=== PATIENT | female | born 1960 | race Two or more races ===

== ENCOUNTER → 2019-03-29 | Day surgery (SDC) | payer OTHER ==
[2019-03-26 17:27] VITALS: BMI 25.4
[~2019-03-29] MED LIST: BUPIVACAINE HCL/PF 0.5% (5MG/ML) 10 ML VIAL ONE; DEXAMETHASONE SOD PHOSPHATE 4 MG/1 ML VIAL ONE; KETOROLAC TROMETHAMINE 30 MG/1 ML VIAL ONE; LIDOCAINE HCL/PF 2% SDV 5ML VIAL ONE; MIDAZOLAM HCL 2 MG/2 ML SINGLE DOSE VIAL ONE; MORPHINE SULFATE 10 MG/1 ML *VIAL ONE; ONDANSETRON 4 MG/2 ML VIAL IVPUSH ONE; ONDANSETRON 4 MG/2 ML VIAL IVPUSH PRN; ONDANSETRON 4 MG/2 ML VIAL ONE; PROMETHAZINE HCL 25 MG/1 ML VIAL IVPUSH PRN; PROPOFOL 20 ML ONE; ceFAZolin SODIUM 1 GM VIAL ONE; oxyCODONE HCL 5 MG TABLET PO PRN
[2019-03-29 12:25] VITALS: TEMP 97.6
[2019-03-29 13:28] VITALS: BP 146/82; PULSE 85
--- NOTE | 2019-03-30 09:26 | OP ---
DATE OF OPERATION: 03/29/2019 PREOPERATIVE DIAGNOSIS: Torn medial meniscus to the left knee. 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 PROCEDURE PERFORMED: Drilling of osteochondritis dissecans lesion, extensive joint debridement, partial medial meniscectomy, shaving of patellar cartilage consistent with chondroplasty, synovectomy extensive. SURGEON: Itz Fernandez MD MECHANICAL ENGINEERING PROFESSOR: JAYCE Padgett ANESTHESIOLOGIST: Raymundo Chowdary MD ANESTHESIA: General anesthesia. THE PROCEDURE: Consisted of the patient being brought into the operating room and gently transferred from the stretcher to the OR table with all bony prominences well padded. The left leg was prepared and draped in sterile fashion. The patient was given intravenous antibiotics and copious irrigation throughout the procedure to minimize the risk for infection. A complete [id number] discussion was conducted with the patient, which was inclusive of, but not limited to, infection, bleeding, , paralysis, increased pain, and need for repeat surgery. The patient asked questions, understood the procedure, and desired to proceed with surgical treatment. Following sterile preparation and draping of the left leg, an appropriate time-out was conducted which was inclusive of, but not limited to, site of surgery, type of surgery, anesthesiologist, and surgeon. Following sterile preparation, draping, and time-out, the left leg was exsanguinated using an Esmarch bandage, and the tourniquet inflated to 325 mmHg. Suprapatellar and medial and lateral joint line portals were used to introduce the arthroscope and arthroscopic instruments. The knee was examined. There was noted to be inflamed synovial tissue in the suprapatellar pouch, and extensive synovectomy was performed. The medial gutter was noted to have hypertrophic synovium, and this was also resected. Lateral gutter was without plica or loose body. Medial meniscus was found to have a tear at the posterior horn, and this was dissected using a shaver and radiofrequency wand. There was noted to be an osteochondritis dissecans lesion on the medial femoral condyle of 1 cm in diameter. This was debrided, and micro-drilling using a K-wire of appropriate diameter 0.62 mm in diameter was used to create a drill perforation with multiple perforations to allow local stem cells and vascularization of the osteochondritis dissecans. The intercondylar region was noted to have joint debris, and extensive joint debridement was performed of the intercondylar region of the joint. Cruciate ligaments were found to be intact. There was noted to be a tear of the posterior horn of the lateral meniscus, and this was resected using shaver and radiofrequency wand. The knee joint was then copiously irrigated with sterile saline irrigant. The wounds were closed with 4-0 undyed Vicryl. We applied Steri-Strips, Xeroform, 4x4s, combine, sterile Webril, Richard bandage, and knee immobilizer. The patient was then gently awoken from anesthesia without incident and transferred from the operating room to the recovery room in satisfactory condition. There were no intraoperative complications. ITZ FERNANDEZ M.D. [id number]
--- NOTE | 2019-04-03 16:33 | PATH ---
Surgical Pathology Report Patient Name: JANELLE GAMBINO [facility]. Rec. #: [id number] /Age/Gender: 1960 (Age: 59) / F Account: [id number] Location: [facility] Taken: 03/29/2019 Received: 03/29/2019 Reported: 04/03/2019 Physicians: Chapito Fernandez M.D. Specimen(s) Received SHAVINGS LEFT KNEE Clinical History Left knee Final Diagnosis KNEE, LEFT, ARTHROSCOPIC SHAVINGS: FIBROSYNOVIAL TISSUE AND CARTILAGE. Electronically Signed Jonna Arora M.D. Gross Description Received in formalin, labeled "left knee shavings," is a 2.5 x 2.0 x 0.3 cm. aggregate of morales-yellow soft tissue fragments. A insurance service representative portion is submitted in one cassette. /04/01/2019 saudi04/01/2019
== END | disposition home or self-care (01) ==
LOC: FASU 07:52
PROVIDERS: ATTEND Orthopaedic Surgery
PROC: 0SQD4ZZ Repair Left Knee Joint, Percutaneous Endoscopic Approach (ICD-10-PCS; 2019-03-29)
PROC: 0SBD4ZZ Excision of Left Knee Joint, Percutaneous Endoscopic Approach (ICD-10-PCS; 2019-03-29)
PROC: 0SQD4ZZ Repair Left Knee Joint, Percutaneous Endoscopic Approach (ICD-10-PCS; 2019-03-29)
PROC: 0SBD4ZZ Excision of Left Knee Joint, Percutaneous Endoscopic Approach (ICD-10-PCS; principal; 2019-03-29 10:42)
DX: S83.242A Other tear of medial meniscus, current injury, left knee, initial encounter (principal); M93.262 Osteochondritis dissecans, left knee; M22.42 Chondromalacia patellae, left knee; M67.262 Synovial hypertrophy, not elsewhere classified, left lower leg; X58.XXXA Exposure to other specified factors, initial encounter; Y93.89 Activity, other specified; Y92.89 Other specified places as the place of occurrence of the external cause
CPT/HCPCS: 82962; 88304-TC; 94760